=== PATIENT | female | born 1950 | race Two or more races ===

== ENCOUNTER 2024-04-14 11:34 | Outpatient (AMB) | payer MEDICARE, SELFPAY ==
--- NOTE | 2024-04-14 11:48 | A.OFFVIS_ITS ---
Vital Signs 3 04/14/24 11:49 Height 5 ft 4 in Weight 205 lb 7.533 oz BMI 35.3 BP 138/79 Blood Pressure Location Lt brachial Position Sitting Pulse 79 Intake Visit Reasons: Gerd Intake Note: Catie presents as a new patient for evaluation and management of GERD. CC: Patient c/o acid reflux, sour taste, feeling like when she takes coffee it feels like it stays in her esophagus. Per patient she was seen by a throat doctor and advised to ask to have an EGD done because her sister had stomach cancer. Per patient she was prescribed Omeprazole 20 mg QD but does not help at all with her symptoms. Her last colonoscopy and EGD was done 2 years ago per patient. She also reports that she feels like she has something in her throat. Per patient her symptoms are worst around 4 AM. Lead Web Developer Required: Yes Lead Web Developer Language: French Lead Web Developer Name: [id number] Meaghan Allergies No Known Allergies Allergy (Verified 05/14/24 11:44) HPI HPI Gerd: Details: Here for the evaluation or GERD. She is referred by Dr. Anaya PMX High cholesterol Hypertension Morbid obesity Venous insufficiency GERD Transaminitis History of H pylori infection History of tubular adenoma -2021 Anxiety disorder Iron-deficiency anemia * SURGICAL HISTORY Colonoscopy/EGD root GN-BM C Cholecystectomy He from testing * ALLERGIES Pravastatin Simvastatin Lisinopril Amlodipine * MEDITECH LABS: none TODAY'S VISIT [id number] She is having discomfort She feels this in the epigastrum and the throat at the sternal notch. She is on omeprazole 20mg qd w/o help. Her voice is hoarse. She says her voice always gets hoarse when she is nervous. She says she was sent here for an EGD, but she just had one in 2021 so I ask her what she was told about these results. She says she was txed with abx for H pylori. She had an improvement after the abx. but the sx have worsened in the past several months. However, she does not have the sx every day. She has not noticed any particular foods that set it off. She will wake up with severe belching, despite eating her last meal at about 6 pm. She does not note early satiety. No N/V. Since she is s/p gisele, I ask about diarrhea. She denies watery stools but she will have frequent BM's. She moves her bowels every am but at times she strains to move her bowels. 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 She does seem to have an element of gas trapping. She does experience intermittent bloating and passes a lot of gas. Her sister has stomach cancer and so she is worried. She just . Apparently she underwent complete gastrectomy but then she had metastases. She has never used any other medication but omeprazole. I think she needs a trial of a larger dose adn we will progress to 40mg qd. She has never been on a gas pill. She gave her PCP a stool sample but does not know the result - ? if this was for HP eradication. I will get a barium swallow, labs, and EGD ordered. She denies any cardiac or respiratory problems NO ID problems No anes or sed problems. Her sister of stomach cancer. She has another sister in [place] who has PUD. ROV 4 weeks to eval response to omeprazole and simethicone. [facility] Medical History (Updated 06/16/24 @ 10:55 by GARRY Alexandre) History of Helicobacter pylori infection Surgical History Hx laparoscopic cholecystectomy History of esophagogastroduodenoscopy (EGD) H/O colonoscopy Family History Father Liver disease Mother Leukemia Sister Stomach cancer Sister GERD (gastroesophageal reflux disease) Social History Alcohol intake: current Alcohol type: wine Comment: Wine with meals Patient Tobacco Use Status: Never used Tobacco Review of Systems Const Denies fatigue, Denies fever(s), Denies night sweats, Denies poor appetite and Denies weight loss ENT Reports Normal hearing present, Denies dysphagia, Reports hoarseness, Denies odynophagia, Reports sore throat, Denies throat swelling and Denies tongue swelling Card Reports no additional complaints Resp Reports no additional complaints GI Details: Reports abdominal pain, Denies melena, Reports bloating, Denies hematochezia, Denies constipation, Denies GI cramping, Denies dysphagia, Denies excessive flatus, Denies early satiety, Reports heartburn, Denies diarrhea, Denies nausea, Denies odynophagia, Denies vomiting and Denies hematemesis Skin/Breast Denies pruritus, Denies lesions, Denies rash and Denies jaundice Neuro Reports Normal hearing present and Denies Abnormal speech present Endo Denies fatigue Aller/Immun Denies throat swelling and Denies tongue swelling Physical Exam Vital Signs: Last Vital Signs Pulse 79 04/14/24 11:49 BP 138/79 04/14/24 11:49 BMI result Body Mass Index 35.3 Const General: cooperative, no acute distress, well developed and well groomed Nutritional Appearance: well nourished and obese Orientation/consciousness: oriented to person, oriented to place and oriented to time Limitations: language barrier HEENT Head: Yes normocephalic and Yes atraumatic Eyes General: appearance normal, both eyes and all related structures Pupils: Equal, round and reactive pupils present Neck Neck: Yes normal visual inspection and Yes no lymphadenopathy Thyroid: Thyroid normal Resp Effort & Inspection: normal respiratory effort and able to speak in complete sentences Auscultation: clear to auscultation bilaterally Cardio Rate: regular rate Rhythm: regular rhythm Heart sounds: Normal, physiologic split S2 sound present Peripheral pulses: radial pulses present and posterior tibial pulses present GI Inspection: No distended, No Abdominal panniculus present and Yes obesity Palpation (GI): Soft to palpation, nontender, no guarding, not rigid and No hepatosplenomegaly present Percussion: Yes normal to percussion Auscultation: normal bowel sounds Rectal Exam - Female: deferred Abdomen image: 2 1. surgical scar Skin General skin exam: no rashes or lesions noted, turgor normal, skin not dry, no jaundice, No spider nevi and no striae Rashes: no rashes Nails: normal Neuro General: oriented to person, oriented to place and oriented to time Cranial nerves: Yes Equal, round and reactive pupils present and Yes Normal hearing present Speech: No Abnormal speech present Extrem General: Yes normal to inspection, No clubbing, No cyanosis and Yes edema (mild pitting) Psych Appearance: grossly normal and well kempt Mental Status: mental status grossly normal Speech and movement: Pressured speech present Affect: Anxious affect present Attitude: cooperative Thought process: Circumstantial thought process present and not confabulating Thought content: Normal thought content present Insight: Limited insight present (Psych) Judgement: Limited judgement present (Psych) Assessment & Plan Assessment & Plan (1) Pre-op examination: Code(s): Z01.818 - Encounter for other preprocedural examination Category: Medical (2) GERD (gastroesophageal reflux disease): Code(s): K21.9 - Gastro-esophageal reflux disease without esophagitis Category: Medical (3) Hoarse voice quality: Code(s): R49.0 - Dysphonia Category: Medical Plan [id number] She is having discomfort She feels this in the epigastrum and the throat at the sternal notch. She is on omeprazole 20mg qd w/o help. Her voice is hoarse. She says her voice always gets hoarse when she is nervous. She says she was sent here for an EGD, but she just had one in 2021 so I ask her what she was told about these results. She says she was txed with abx for H pylori. She had an improvement after the abx. but the sx have worsened in the past several months. However, she does not have the sx every day. She has not noticed any particular foods that set it off. She will wake up with severe belching, despite eating her last meal at about 6 pm. She does not note early satiety. No N/V. Since she is s/p gisele, I ask about diarrhea. She denies watery stools but she will have frequent BM's. She moves her bowels every am but at times she strains to move her bowels. 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 She does seem to have an element of gas trapping. She does experience intermittent bloating and passes a lot of gas. Her sister has stomach cancer and so she is worried. She just . Apparently she underwent complete gastrectomy but then she had metastases. She has never used any other medication but omeprazole. I think she needs a trial of a larger dose adn we will progress to 40mg qd. She has never been on a gas pill. She gave her PCP a stool sample but does not know the result - ? if this was for HP eradication. I will get a barium swallow, labs, and EGD ordered. She denies any cardiac or respiratory problems NO ID problems No anes or sed problems. Her sister of stomach cancer. She has another sister in [place] who has PUD. ROV 4 weeks to eval response to omeprazole and simethicone. Orders: Orders 2 EGD - GI Use Only 04/14/24 Z01.818 - Encounter for other preprocedural examination, K21.9 - Gastro-esophageal reflux disease without esophagitis Comprehensive Met. Panel 04/14/24 Z01.818 - Encounter for other preprocedural examination, K21.9 - Gastro-esophageal reflux disease without esophagitis [place] barium swallow 04/14/24 K21.9 - Gastro-esophageal reflux disease without esophagitis Complete Blood Count Auto Diff 04/14/24 Z01.818 - Encounter for other preprocedural examination, K21.9 - Gastro-esophageal reflux disease without esophagitis Medications: New 2 simethicone after meals 180 mg PO QID 120 caps 6RF 30 days omeprazole 40 mg PO DAILY 30 caps 6RF 30 days Coding Level of Care Code New Pt Level 3 (73520) Diagnoses Pre-op examination Z01.818 GERD (gastroesophageal reflux disease) K21.9 Hoarse voice quality R49.0
[2024-04-14 11:49] VITALS: BP 138/79; PULSE 79; BMI 35.3
== END 2024-04-14 13:15 | disposition home or self-care (01) ==
PROVIDERS: PCP Internal Medicine; Visit Provider Nurse Practitioner
DX: K21.9 Gastro-esophageal reflux disease without esophagitis (principal); R49.0 Dysphonia; Z80.0 Family history of malignant neoplasm of digestive organs
CPT/HCPCS: 99203

== ENCOUNTER 2024-04-14 11:34 | Outpatient (REF) | payer MEDICARE, SELFPAY ==
[2024-04-14 13:35] LABS: MANUAL DIFF FLAG NO
[2024-04-14 13:42] LABS: Basophils Percent Auto 0.3 % (0-2); Eosinophils Absolute Auto 0.1 X10*3/uL (0.0-0.4); Eosinophils Percent Auto 1.6 % (0-4); Hematocrit 41.4 % (37.0-47.0); Hemoglobin 14.4 g/dl (12.0-16.0); Imm Gran Abs Auto 0.06 X10*3/uL (0.00-0.03); Lymphocytes Absolute Auto 1.5 X10*3/uL (1.2-4.9); Lymphocytes Percent Auto 24.5 % (20-40); Mean Corpuscular HGB Conc 34.8 g/dl (31.0-35.0); Mean Corpuscular Hemoglobin 30.8 pg (27.0-33.0); Mean Corpuscular Volume 88.7 fL (80.0-98.0); Mean Platelet Volume 10.7 fL (9.4-12.3); Monocytes Absolute Auto 0.5 X10*3/uL (0.1-1.2); Monocytes Percent Auto 8.7 % (2-11); Neutrophils Absolute Auto 3.9 x10*3/uL (2.0-8.3); Neutrophils Percent Auto 63.9 % (45-73); Platelet Count 183 X10*3/uL (160-400); Red Blood Count 4.67 X10*6/uL (4.20-5.50); Red Cell Distribution Width 13.5 % (11.0-16.0); White Blood Count 6.1 X10*3/uL (4.8-10.8)
[2024-04-14 14:29] LABS: Alanine Aminotransferase 85 U/L (0-31); Albumin Level 4.9 g/dL (3.5-5.0); Alkaline Phosphatase 93 U/L (39-117); Anion Gap 12 (12-20); Aspartate Amino Transferase 56 U/L (5-31); Bilirubin Total 1.6 mg/dL (0.0-1.0); Blood Urea Nitrogen 11 mg/dL (9-16); Carbon Dioxide 29 mmol/L (22-29); Chloride 106 mmol/L (96-108); Estimated Glomerular Filt Rate > 60; Glucose Random 95 mg/dL (60-115); Potassium 3.3 mmol/L (3.3-5.1); Sodium 144 mmol/L (135-145); Total Protein 7.8 g/dL (6.5-8.0)
== END 2024-04-14 11:35 | disposition home or self-care (01) ==
LOC: HO.LAB 11:34
PROVIDERS: PCP Internal Medicine; Visit Provider Nurse Practitioner
DX: Z01.818 Encounter for other preprocedural examination (principal); K21.9 Gastro-esophageal reflux disease without esophagitis
CPT/HCPCS: 36415; 80053; 85025

== ENCOUNTER 2024-04-17 09:53 | Day surgery (SDC) | payer MEDICARE, SELFPAY ==
--- NOTE | 2024-04-16 09:48 | HO.ANESPROP2 ---
Documented by User: Idania Gillespie NP 04/16/24 09:49 HPI - Anesthesia Eval Consult details Narrative: 73yo F for Upper Endoscopy PMFSH Active Problems Active Problems: All Active Problems GERD (gastroesophageal reflux disease) (Acute) Pre-op examination (Acute) Family History Family History Father Liver disease Mother Leukemia Sister Stomach cancer Sister GERD (gastroesophageal reflux disease) Surgical History Surgical History Hx laparoscopic cholecystectomy History of esophagogastroduodenoscopy (EGD) H/O colonoscopy Social History Social History Alcohol intake: current Alcohol type: wine Comment: Wine with meals Patient Tobacco Use Status: Never used Tobacco Use of substances other than those prescribed or required for medical reasons: No Are you DNR?: No Advance Directives: No Advance Directives Information Provided: Yes Advance Directives on File: No Recently lost weight without trying: No Nutrition Risks: No Nutritional Risk Patient : No Meds Allergies Allergy/AdvReac Type Severity Reaction Status Date / Time No Known Allergies Allergy Verified 04/14/24 12:00 Home Medications ?Medication ?Instructions ?Recorded ?Confirmed ?Last Taken ?Type cetirizine 10 mg capsule (Zyrtec) 10 mg PO DAILY PRN allergies 04/14/24 04/17/24 History clonazepam 2 mg tablet 2 mg PO BEDTIME 04/14/24 Unknown History losartan 100 1 tab PO DAILY 04/14/24 04/17/24 History mg-hydrochlorothiazide 12.5 mg tablet red yeast rice 600 mg capsule 600 mg PO BID 04/14/24 Unknown History Exam Pertinent Lab Results Pertinent Lab Results: Laboratory Tests 04/14/24 13:33 WBC 6.1 Hgb 14.4 Hct 41.4 Plt Count 183 Sodium 144 Potassium 3.3 Chloride 106 Carbon Dioxide 29 BUN 11 Creatinine 0.83 Assessment and Plan Assessment Anesthesia Assessment: Chart Reviewed Documented by User: Dahlia Marinelli MD 04/17/24 12:53 PMFSH Family History Family History Father Liver disease Mother Leukemia Sister Stomach cancer Sister GERD (gastroesophageal reflux disease) Family history of problems with anesthesia: No Surgical History Surgical History Hx laparoscopic cholecystectomy History of esophagogastroduodenoscopy (EGD) H/O colonoscopy History of Problems with Anesthesia: No Social History Social History Alcohol intake: current Alcohol type: wine Comment: Wine with meals Patient Tobacco Use Status: Never used Tobacco Use of substances other than those prescribed or required for medical reasons: No Are you DNR?: No Advance Directives: No Advance Directives Information Provided: Yes Advance Directives on File: No Recently lost weight without trying: No Nutrition Risks: No Nutritional Risk Patient : No Meds Allergies Allergy/AdvReac Type Severity Reaction Status Date / Time No Known Allergies Allergy Verified 04/14/24 12:00 Home Medications ?Medication ?Instructions ?Recorded ?Confirmed ?Last Taken ?Type cetirizine 10 mg capsule (Zyrtec) 10 mg PO DAILY PRN allergies 04/14/24 04/17/24 History clonazepam 2 mg tablet 2 mg PO BEDTIME 04/14/24 Unknown History losartan 100 1 tab PO DAILY 04/14/24 04/17/24 History mg-hydrochlorothiazide 12.5 mg tablet red yeast rice 600 mg capsule 600 mg PO BID 04/14/24 Unknown History Exam Airway Mallampati Class: II TM Dist: >3cm Neck ROM: Full Heart: rrr Lungs: cta Assessment and Plan Assessment Anesthesia Assessment: Anesthesia Plan Discussed Final Anesthetic Review Family History of Problems with Anesthesia: No History of Problems with Anesthesia: No NPO: Yes ASA Class: II Final Preanesthetic Review: No Changes in Pt Med Stat, Meds/Allgs Chart Reviewed and Consent Obtained/Reviewed Patient Risk: Low Procedure Risk: Intermediate Anesthetic Plan Anesthetic Plan: MAC: Disposition: Standard PACU
--- NOTE | 2024-04-17 11:25 | MHC.SHP ---
Pre-Procedural Eval Section A - 24 Hr Update-Section A only Date of Service: 04/17/24 The patient is an INPATIENT: Yes Changes since office visit: Yes Patient answered all questions; No Cold of Flu in the past 2 weeks, No New Medical Problems and No Changes in Medication The patient has been examined within 24 hours of the surgical procedure. The History & Physical has been completed within 30 days and I have reviewed it.: Yes Section B - Complete if H&P > 30 days Chief Complaint: GERD, hoarseness Allergies: Allergies Allergy/AdvReac Type Severity Reaction Status Date / Time No Known Allergies Allergy Verified 04/14/24 12:00 Plan Diagnosis/Plan: Change (proceed with EGD) I have reviewed the history and physical and performed a pertinent physical examination on my patient. No changes have occurred unless specified. Time Spent With Patient Time: Total time managing care of this patient today ____ minutes.
--- NOTE | 2024-04-17 11:39 | PC.NURSE ---
used beto for brazilian intepreter and brazilian speaking polymer scientist not available other than brazilian . used by the jazzydisachi while evaluating patient and speaks barbadian and didnt need the polymer scientist for the evaluation and the intepreter stated we could call another polymer scientist if needed to see if they spweak brazilian from [facility].
[2024-04-17 11:43] VITALS: BMI 35.5
[2024-04-17] MEDS: Lactated Ringers 1,000 ML 100 ML IVCONT (11:56)
--- NOTE | 2024-04-17 13:01 | W.PM.OPN ---
Operative Note Operative Note Date of Service: 04/17/24 Narrative: FLEXIBLE TRANSORAL UPPER GASTROINTESTINAL ENDOSCOPY WITH BIOPSIES Pre-op diagnosis: GERD, family hx of gastric cancer Post-op diagnosis: GERD, Gastritis, Endoscopist:? Rickey Harris MD Anesthesia:?MAC UPPER ENDOSCOPY Consent: Indications for the procedure and potential complications of bleeding, perforation, reaction to medications and missed diagnosis were discussed with the patient and informed consent was obtained. Instrument: Olympus GIF H 190 mid size upper endoscope Monitoring: Vital signs and clinical assessment, continuous EKG monitoring, Pulse oximetry, Carbon Dioxide monitoring and blood pressure monitoring were done throughout the procedure. Procedure: The patient was placed in the left lateral decubitis position and pre-procedure medications were administered and a bite block was placed. The endoscope was inserted into the mouth and advanced under direct vision to the third part of duodenum. A careful inspection was made as the upper endoscope was withdrawn including a retroflexed examination of the proximal stomach; Findings and interventions are described below. Findings: Larynx: Normal Esophagus: GE junction at 40 cms. Mildly tortuous esophagus. No esophagitis noted. Irregular Z line - biopsies were obtained to check for Segura's esophagus Stomach: Nodular appearing mucosa in the gastric body and fundus - biopsied. Moderate diffuse gastric erythema - biopsies were obtained from the antrum to check for Helicobacter pylori. Grade 2 flap valve on retroflexed examination of the cardia. Duodenum: Normal bulb and descending duodenum. Biopsies were obtained from 3rd part of the duodenum to check for celiac sprue Intervention: Biopsies as noted above Impression and Post Procedure Diagnosis: Endoscopy Findings: ESOPHAGUS: Mildly tortuous esophagus, irregular Z line - biopsied to check for Segura's STOMACH: Nodular appearing mucosa in the gastric body and fundus - biopsied. Moderate diffuse gastric erythema - biopsies were obtained from the antrum to check for Helicobacter pylori. DUODENUM: Normal - Biopsied to check for celiac sprue PLAN: Patient has a follow-up appointment with Colette Carvajal NP on 05/10/24 to discuss biopsy results. Continue omeprazole 40 mg daily. BIOPSIES SHOWED: A. Small bowel, biopsy: Duodenal/small bowel mucosa with preserved villi and no specific change; no evidence of celiac disease. B. Gastric antrum, biopsy: Gastric antral mucosa with reactive changes and minimal chronic inactive gastritis; negative for intestinal metaplasia and dysplasia. C. Gastric body, biopsy: Gastric body mucosa with minimal chronic inactive gastritis; negative for intestinal metaplasia and dysplasia. D. Gastroesophageal junction, biopsy: Squamous mucosa with hyperplasia, spongiosis, and rare intraepithelial eosinophils (up to 1 per high-power field, and columnar mucosa with mild chronic active inflammation consistent with reflux esophagitis; no intestinal metaplasia seen on initial levels; negative for dysplasia
[2024-04-17 13:17] VITALS: BP 139/63; PULSE 59; RESP 16; TEMP 36.2; O2SAT 97
[2024-04-17 13:32] VITALS: BP 123/64; PULSE 55; RESP 16; TEMP 36.2; O2SAT 96
== END 2024-04-17 13:58 | disposition home or self-care (01) ==
PROVIDERS: PCP Internal Medicine; Visit Provider Internal Medicine Gastroenterology
PROC: 0DJ08ZZ Inspection of Upper Intestinal Tract, Via Natural or Artificial Opening Endoscopic (ICD-10-PCS; CPT 43235; principal; 2024-04-17 12:00)
DX: K31.7 Polyp of stomach and duodenum (principal); K29.70 Gastritis, unspecified, without bleeding; K22.9 Disease of esophagus, unspecified; K22.4 Dyskinesia of esophagus; K21.9 Gastro-esophageal reflux disease without esophagitis; Z80.0 Family history of malignant neoplasm of digestive organs
CPT/HCPCS: 43239; 88305; 88313; 88342

== ENCOUNTER → 2024-04-17 09:53 | Outpatient (BNV) | payer MEDICARE, SELFPAY | PROVIDERS: PCP Internal Medicine; Visit Provider Internal Medicine Gastroenterology | DX: K21.9 Gastro-esophageal reflux disease without esophagitis (principal); Z80.0 Family history of malignant neoplasm of digestive organs; K29.70 Gastritis, unspecified, without bleeding | CPT/HCPCS: 43239 ==

== ENCOUNTER 2024-05-14 11:21 | Outpatient (AMB) | payer MEDICARE, SELFPAY ==
--- NOTE | 2024-05-14 11:23 | MHC.OFFVIS ---
Vital Signs 05/14/24 11:31 Height 5 ft 4 in Weight 204 lb 9.423 oz BMI 35.1 BP 92/54 L Blood Pressure Location Rt brachial Position Sitting Pulse 88 Intake Visit Reasons: 4 week follow up Intake Note: Catie presents to in office follow up of s/p EGD. CC: Patient states feeling a lot better but sometimes when she wakes up her mouth is dry and has a sour taste. 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 Sports Coach Name: [id number] Ltei Accompanied by: Self / Same As Patient Allergies No Known Allergies Allergy (Verified 05/14/24 11:44) HPI HPI 4 week follow up: Details: Assessment & Plan (1) Pre-op examination: Code(s): Z01.818 - Encounter for other preprocedural examination Category: Medical (2) GERD (gastroesophageal reflux disease): Code(s): K21.9 - Gastro-esophageal reflux disease without esophagitis Category: Medical Orders: Orders EGD - GI Use Only Today K21.9 - Gastro-esophageal reflux disease without esophagitis, Z01.818 - Encounter for other preprocedural examination Comprehensive Met. Panel Today K21.9 - Gastro-esophageal reflux disease without esophagitis, Z01.818 - Encounter for other preprocedural examination FL barium swallow Today K21.9 - Gastro-esophageal reflux disease without esophagitis Complete Blood Count Auto Diff Today K21.9 - Gastro-esophageal reflux disease without esophagitis, Z01.818 - Encounter for other preprocedural examination Medications: New simethicone after meals 180 mg PO QID 30 days 120 caps 6RF omeprazole 40 mg PO DAILY 30 days 30 caps 6RF [id number] She is having discomfort She feels this in the epigastrum and the throat at the sternal notch. She is on omeprazole 20mg qd w/o help. Her voice is hoarse. She says her voice always gets hoarse when she is nervous. She says she was sent here for an EGD, but she just had one in 2021 so I ask her what she was told about these results. She says she was txed with abx for H pylori. She had an improvement after the abx. but the sx have worsened in the past several months. However, she does not have the sx every day. She has not noticed any particular foods that set it off. She will wake up with severe belching, despite eating her last meal at about 6 pm. She does not note early satiety. No N/V. Since she is s/p gisele, I ask about diarrhea. She denies watery stools but she will have frequent BM's. She moves her bowels every am but at times she strains to move her bowels. So, it does not sound like she is an over bee producer of bile. She does seem to have an element of gas trapping. She does experience intermittent bloating and passes a lot of gas. Her sister has stomach cancer and so she is worried. She just . Apparently she underwent complete gastrectomy but then she had metastases. She has never used any other medication but omeprazole. I think she needs a trial of a larger dose adn we will progress to 40mg qd. She has never been on a gas pill. She gave her PCP a stool sample but does not know the result - ? if this was for HP eradication. I will get a barium swallow, labs, and EGD ordered. She denies any cardiac or respiratory problems NO ID problems No anes or sed problems. Her sister of stomach cancer. She has another sister in [place] who has PUD. ROV 4 weeks to eval response to omeprazole and simethicone LABS: Laboratory Tests 04/14/24 13:33 WBC 6.1 Hgb 14.4 Hct 41.4 Plt Count 183 Estimated GFR > 60 Total Bilirubin 1.6 H AST 56 H ALT 85 H Alkaline Phosphatase 93 BARIUM SWALLOW EGD 04/17/24 Findings: Larynx: Normal Esophagus: GE junction at 40 cms. Mildly tortuous esophagus. No esophagitis noted. Irregular Z line - biopsies were obtained to check for Segura's esophagus Stomach: Nodular appearing mucosa in the gastric body and fundus - biopsied. Moderate diffuse gastric erythema - biopsies were obtained from the antrum to check for Helicobacter pylori. Grade 2 flap valve on retroflexed examination of the cardia. Duodenum: Normal bulb and descending duodenum. Biopsies were obtained from 3rd part of the duodenum to check for celiac sprue Intervention: Biopsies as noted above Impression and Post Procedure Diagnosis: Endoscopy Findings: ESOPHAGUS: Mildly tortuous esophagus, irregular Z line - biopsied to check for Segura's STOMACH: Nodular appearing mucosa in the gastric body and fundus - biopsied. Moderate diffuse gastric erythema - biopsies were obtained from the antrum to check for Helicobacter pylori. DUODENUM: Normal - Biopsied to check for celiac sprue PLAN: Patient has a follow-up appointment with Colette Carvajal NP on 05/10/24 to discuss biopsy results. Continue omeprazole 40 mg daily. BIOPSIES SHOWED: A. Small bowel, biopsy: Duodenal/small bowel mucosa with preserved villi and no specific change; no evidence of celiac disease. B. Gastric antrum, biopsy: Gastric antral mucosa with reactive changes and minimal chronic inactive gastritis; negative for intestinal metaplasia and dysplasia. C. Gastric body, biopsy: Gastric body mucosa with minimal chronic inactive gastritis; negative for intestinal metaplasia and dysplasia. D. Gastroesophageal junction, biopsy: Squamous mucosa with hyperplasia, spongiosis, and rare intraepithelial eosinophils (up to 1 per high-power field, and columnar mucosa with mild chronic active inflammation consistent with reflux esophagitis; no intestinal metaplasia seen on initial levels; negative for dysplasia TODAY'S VISIT Cy#[id number] We review the results and I am able to reassure her that she does not appear to have stomach cancer like her sister had. She is doing well on the omeprazole and simethicone and this seems to have resolved her heartburn and her reflux, although it has not changed the dysphonia she experiences when she is anxious. Return office visit in 6 months [facility] Medical History (Updated 06/16/24 @ 10:55 by GARRY Alexandre) History of Helicobacter pylori infection Surgical History Hx laparoscopic cholecystectomy History of esophagogastroduodenoscopy (EGD) H/O colonoscopy Family History Father Liver disease Mother Leukemia Sister Stomach cancer Sister GERD (gastroesophageal reflux disease) Social History (Reviewed 05/14/24 @ 11:55 by Bhavna Calderon [facility]) Alcohol intake: current Alcohol type: wine Comment: Wine with meals Patient Tobacco Use Status: Never used Tobacco Review of Systems Const Denies fatigue, Denies fever(s), Denies night sweats, Denies poor appetite and Denies weight loss Eyes Reports requires corrective lenses ENT Reports Normal hearing present, Denies dental pain, Denies dysphagia, Denies hearing loss, Denies mouth pain, Denies odynophagia, Denies throat swelling, Denies tongue swelling and Reports other (Dentition adequate) GI Details: Denies abdominal pain, Denies melena, Denies bloating, Denies hematochezia, Denies constipation, Denies GI cramping, Denies dysphagia, Denies excessive flatus, Denies early satiety, Denies heartburn, Denies diarrhea, Denies nausea, Denies odynophagia, Denies vomiting and Denies hematemesis Skin/Breast Denies pruritus, Denies lesions, Denies rash and Denies jaundice Neuro Reports Normal hearing present and Denies Abnormal speech present Endo Denies fatigue Aller/Immun Denies throat swelling and Denies tongue swelling Physical Exam Vital Signs: Last Vital Signs Pulse 88 05/14/24 11:31 BP 92/54 L 05/14/24 11:31 BMI result Body Mass Index 35.1 Const General: cooperative, no acute distress, well developed and well groomed Nutritional Appearance: well nourished, obese and overweight Orientation/consciousness: oriented to person, oriented to place and oriented to time Limitations: No language barrier, ambulation with cane, ambulation with walker and wheelchair HEENT Head: Yes normocephalic and Yes atraumatic Eyes General: appearance normal, both eyes and all related structures Pupils: Equal, round and reactive pupils present Neck Neck: Yes normal visual inspection and Yes no lymphadenopathy Thyroid: Thyroid normal Resp Effort & Inspection: normal respiratory effort and able to speak in complete sentences Auscultation: clear to auscultation bilaterally Cardio Rate: regular rate Rhythm: regular rhythm Heart sounds: Normal, physiologic split S2 sound present Peripheral pulses: radial pulses present and posterior tibial pulses present GI Inspection: No distended and No Abdominal panniculus present Palpation (GI): Soft to palpation, nontender, no guarding, not rigid, No hepatosplenomegaly present and Hepatosplenomegaly present Percussion: Yes normal to percussion Auscultation: normal bowel sounds Rectal Exam - Female: deferred Skin General skin exam: no rashes or lesions noted, turgor normal, skin not dry, no jaundice, No spider nevi and no striae Rashes: no rashes Nails: normal Neuro General: oriented to person, oriented to place and oriented to time Cranial nerves: Yes Equal, round and reactive pupils present and Yes Normal hearing present Speech: No Abnormal speech present Extrem General: Yes normal to inspection, No clubbing, No cyanosis and No edema Psych Thought process: Normal thought process present and not confabulating Thought content: Normal thought content present Insight: Good insight present (Psych) Judgement: Good judgement present (Psych) Assessment & Plan Assessment & Plan (1) GERD (gastroesophageal reflux disease): Code(s): K21.9 - Gastro-esophageal reflux disease without esophagitis Category: Medical Plan [facility]#[id number] We review the results and I am able to reassure her that she does not appear to have stomach cancer like her sister had. She is doing well on the omeprazole and simethicone and this seems to have resolved her heartburn and her reflux, although it has not changed the dysphonia she experiences when she is anxious. Return office visit in 6 months Coding Level of Care Code Est Pt Level 3 (64752) Diagnoses GERD (gastroesophageal reflux disease) K21.9
[2024-05-14 11:31] VITALS: BP 92/54; PULSE 88; BMI 35.1
== END 2024-05-14 12:46 | disposition home or self-care (01) ==
PROVIDERS: PCP Internal Medicine; Visit Provider Nurse Practitioner
DX: K21.9 Gastro-esophageal reflux disease without esophagitis (principal)
CPT/HCPCS: 99213

== ENCOUNTER → 2024-05-14 11:21 | Outpatient (BNVA) | payer SELFPAY | PROVIDERS: PCP Internal Medicine; Visit Provider Nurse Practitioner | DX: K21.9 Gastro-esophageal reflux disease without esophagitis (principal) | CPT/HCPCS: 99212 ==

== ENCOUNTER 2024-12-25 10:31 | Outpatient (AMB) | payer MEDICARE, SELFPAY ==
--- NOTE | 2024-12-25 10:33 | MHC.OFFVIS ---
Vital Signs 12/25/24 10:38 Height 5 ft 4 in Weight 198 lb 6.656 oz BMI 34.1 BP 114/59 L Blood Pressure Location Lt brachial Position Sitting Pulse 81 Intake Visit Reasons: 6m Intake Note: Catie presents as a 6 month follow up. CC: She states that in the AM she wakes up and her mouth is severely dry - she is not sure if something she eats causes this. States her mouth gets a sour taste at times as well. 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 She is doing well on the omeprazole and simethicone and this seems to have resolved her heartburn and her reflux, although it has not changed the dysphonia she experiences when she is anxious. 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 Her dysphonia continues, but she is c/o dry mouth in the AM...but this is recent and she is running a/c at home so this is the most likely reason. She was told to have water at the bedside, I agree with this. Her only new problems is with her cholesterol and she did not do well on statins; so she is trying to diet. She is having trouble with her insurance and getting her visits paid for us. She will be calling her insurance companies. ROV 1 year. PFSH Medical History Pre-op examination History of Helicobacter pylori infection Surgical History Hx laparoscopic cholecystectomy History of esophagogastroduodenoscopy (EGD) H/O colonoscopy Family History Father Liver disease Mother Leukemia Sister Stomach cancer Sister GERD (gastroesophageal reflux disease) Social History Alcohol intake: current Alcohol type: wine Comment: Wine with meals Patient Tobacco Use Status: Never used Tobacco Review of Systems Const Denies fatigue, Denies fever(s), Denies night sweats, Denies poor appetite and Reports weight loss (Intentional dieting to control cholesterol) ENT Reports Normal hearing present, Denies dental pain, Denies dysphagia, Denies hearing loss, Denies mouth pain, Denies odynophagia, Denies throat swelling, Denies tongue swelling and Reports other (Dentition adequate) Card Reports no additional complaints Resp Reports no additional complaints GI Details: Denies abdominal pain, Denies melena, Reports bloating, Denies hematochezia, Denies constipation, Denies GI cramping, Denies dysphagia, Denies excessive flatus, Denies early satiety, Reports heartburn, Denies diarrhea, Denies nausea, Denies odynophagia, Denies vomiting and Denies hematemesis Skin/Breast Denies pruritus, Denies lesions, Denies rash and Denies jaundice Neuro Reports Normal hearing present and Denies Abnormal speech present Endo Denies fatigue Aller/Immun Denies throat swelling and Denies tongue swelling Physical Exam Vital Signs: Last Vital Signs Pulse 81 12/25/24 10:38 BP 114/59 L 12/25/24 10:38 BMI result Body Mass Index 34.1 Const General: cooperative, no acute distress, well developed and well groomed Nutritional Appearance: well nourished and obese Orientation/consciousness: oriented to person, oriented to place and oriented to time Limitations: No language barrier HEENT Head: Yes normocephalic and Yes atraumatic Eyes General: appearance normal, both eyes and all related structures Pupils: Equal, round and reactive pupils present Neck Neck: Yes normal visual inspection and Yes no lymphadenopathy Thyroid: Thyroid normal Resp Effort & Inspection: normal respiratory effort and able to speak in complete sentences Auscultation: clear to auscultation bilaterally Cardio Rate: regular rate Rhythm: regular rhythm Heart sounds: Normal, physiologic split S2 sound present Peripheral pulses: radial pulses present and posterior tibial pulses present GI Inspection: No distended, Yes Abdominal panniculus present and Yes obesity Palpation (GI): Soft to palpation, nontender, no guarding, not rigid and No hepatosplenomegaly present Percussion: Yes normal to percussion Auscultation: normal bowel sounds Rectal Exam - Female: deferred Skin General skin exam: no rashes or lesions noted, turgor normal, skin not dry, no jaundice, No spider nevi and no striae Rashes: no rashes Nails: normal Neuro General: oriented to person, oriented to place and oriented to time Cranial nerves: Yes Equal, round and reactive pupils present and Yes Normal hearing present Speech: No Abnormal speech present Extrem General: Yes normal to inspection, No clubbing, No cyanosis and No edema Psych Appearance: grossly normal and well kempt Mental Status: mental status grossly normal Speech and movement: Normal speech and movement present Affect: normal affect Attitude: cooperative Thought process: Normal thought process present and not confabulating Thought content: Normal thought content present Insight: Fair insight present (Psych) Judgement: Fair judgement present (Psych) Assessment & Plan Assessment & Plan (1) GERD (gastroesophageal reflux disease): Code(s): K21.9 - Gastro-esophageal reflux disease without esophagitis Category: Medical Plan 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 Her dysphonia continues, but she is c/o dry mouth in the AM...but this is recent and she is running a/c at home so this is the most likely reason. She was told to have water at the bedside, I agree with this. Her only new problems is with her cholesterol and she did not do well on statins; so she is trying to diet. She is having trouble with her insurance and getting her visits paid for us. She will be calling her insurance companies. ROV 1 year. Coding Level of Care Code Est Pt Level 3 (07765) Diagnoses GERD (gastroesophageal reflux disease) K21.9
[2024-12-25 10:38] VITALS: BP 114/59; PULSE 81; BMI 34.1
== END 2024-12-25 11:12 | disposition home or self-care (01) ==
LOC: HO.HGI 10:31
PROVIDERS: PCP Internal Medicine; Visit Provider Nurse Practitioner
DX: K21.9 Gastro-esophageal reflux disease without esophagitis (principal)
CPT/HCPCS: 99213

== ENCOUNTER → 2024-12-25 10:31 | Outpatient (BNVA) | payer MEDICARE, SELFPAY | PROVIDERS: PCP Internal Medicine; Visit Provider Nurse Practitioner | DX: K21.9 Gastro-esophageal reflux disease without esophagitis (principal) | CPT/HCPCS: 99212 ==